=== PATIENT | female | born 1965 | race Caucasian/White ===

== ENCOUNTER 2022-01-14 16:12 | Inpatient (IN) | payer MEDICARE, OTHER ==
[~2022-01-14] VITALS: Ht 157.5 cm; Wt 49.9 kg
[2022-01-14] MEDS ORDERED: RISP4TAB70 PO (16:29)
[2022-01-14] MEDS ORDERED: VENL75CA62 PO (16:29)
[2022-01-14] MEDS ORDERED: ALLO100T56 PO (16:29)
[2022-01-14] MEDS ORDERED: CLON1TAB12 PO (16:29)
[2022-01-14] MEDS ORDERED: BUSP15TA3 PO (16:29)
[2022-01-14] MEDS ORDERED: LOSA50TA39 PO (16:29)
[2022-01-14] MEDS ORDERED: TOLT4CAP PO (16:29)
[2022-01-14] MEDS ORDERED: CHOLECALCIFEROL (16:29)
[2022-01-14] MEDS ORDERED: BENZ1TAB7 PO (16:29)
[2022-01-14] MEDS ORDERED: TRAZ-257 PO (16:29)
[2022-01-14] MEDS ORDERED: OMEP20TA5 PO (16:29)
[2022-01-14 16:43] LABS: HEMATOCRIT 37.8 % (31.2-41.9); MEAN CORPUSCULAR HEMOGLOBIN 29.1 uug (24.7-32.8); MEAN CORPUSCULAR VOLUME 87.7 fL (75.5-95.3); PLATELET COUNT (AUTO) 380 K/uL (179-408)
[2022-01-14] MEDS ORDERED: OLANZAPINE 5 MG TABLET PO ONE (16:45)
[2022-01-14 16:50] LABS: CREATININE 0.7 mg/dL (0.6-1.3)
[2022-01-14 16:56] LABS: ACETAMINOPHEN 5.2 ug/mL (10-30); BILIRUBIN,TOTAL 0.6 mg/dL (0.2-1.0); TOTAL PROTEIN, SERUM 6.9 g/dL (6.4-8.2)
[2022-01-14] MEDS ORDERED: OLANZAPINE 5 MG TABLET ONE (16:56)
--- NOTE | 2022-01-14 17:55 | NUR ---
Pt c/o 06/08 left knee pain and 08/08 WILLMD informed
[2022-01-14] MEDS ORDERED: IBUPROFEN 600 MG TABLET PO ONE (18:00)
[2022-01-14] MEDS ORDERED: IBUPROFEN 600 MG TABLET ONE (18:41)
--- NOTE | 2022-01-14 18:44 | NUR ---
Gave pt dinner tray and juice.
[2022-01-14 19:15] LABS: *BILIRUBIN,URIN NEGATIVE (NEGATIVE); *COLOR,URINE YELLOW (YELLOW); *KETONES,URINE NEGATIVE (NEGATIVE); *UROBILINOGEN,URINE 0.2 E.U./dl (NORMAL); LEUKOCYTE ESTERASE ,URINE 3+ (NEGATIVE); NITRITE, URINE NEGATIVE (NEGATIVE); UGLUCOSE NEGATIVE (NEGATIVE)
[2022-01-14 19:18] LABS: *BLOOD, URINE TRACE (NEGATIVE); *CLARITY,URINE HAZY (CLEAR)
[2022-01-14 19:23] LABS: BACTERIA,URINE MODERATE /HPF (NONE SEEN); SQUAMOUS EPITHELIAL CELL,UR FEW /HPF (NONE SEEN); WBC,URINE 80-100 /HPF (0-3)
[2022-01-14] MEDS ORDERED: ZIPRASIDONE MESYLATE 20 MG VIAL IM ONE ×2 (21:00→21:18)
--- NOTE | 2022-01-14 21:37 | NUR ---
GAVE REPORT TO KEM HARTLEY.
--- NOTE | 2022-01-14 22:09 | NUR ---
Pt. admitted to [facility], under care of VICKIE Tidwell Dx: psychosis 5150 hold DTO, DTS Belongs List completed Pt transfered in stable condition, calm and cooperative, denies any pain and discomfort upon admission.
[2022-01-14 22:15] VITALS: BP 131/82
[2022-01-14] MEDS ORDERED: MAG HYDROX/AL HYDROX/SIMETH 30 ML LIQUID UDC PO PRN (22:15)
[2022-01-14] MEDS ORDERED: BLOOD SUGAR DIAGNOSTIC 1 EACH STRIP VI ONE (22:15)
[2022-01-14] MEDS ORDERED: LORAZEPAM 0.5 MG TABLET PO PRN (22:15)
[2022-01-14] MEDS ORDERED: MAGNESIUM HYDROXIDE 30 ML LIQUID UDC PO PRN (22:15)
[2022-01-14] MEDS ORDERED: ZOLPIDEM 5 MG TABLET PO PRN (22:15)
--- NOTE | 2022-01-14 22:30 | NUR ---
GPS ADMISSION NOTES: PATIENT ADMITTED TO [facility] VIA WHEELCHAIR WITH ER NURSE. PATIENT A&0X3. PATIENT ADMITTED WITH DIAGNOSIS OF PSYCHOSIS D/T DANGER TO SELF AND OTHERS. PATIENT ON 5150. INITIAL FACE TO FACE EVALUATION DONE. PATIENT STATES WHEN ASKED IF ANY THOUGHTS OF HURTING SELF W/C SHE RESPONDS "YES, I FEEL I WANT TO JUMP OF THE BUILDING", AND WHEN ASKED IF HAVING ANY THOUGHTS OF HURTING OTHERS, SHE RESPONDS "AHA, I DON'T KNOW, MY BRAIN IS FOGGY RIGHT NOW" PATIENT C/O OF HEADACHE AND KNEE PAIN AND REQUESTS FOR PAIN MEDICATION. HEAD TO TOE ASSESSMENT DONE. PATIENT NOTED WEARING LEFT KNEE BRACE, BILATERAL HEALED KNEE STITCHES ALSO NOTED. PATIENT APPEARS CALM UPON ADMISSION. COOPERATIVE AND RESPONDS TO QUESTION APPROPRIATELY. SAFETY MEASURES KEPT IN PLACE. PATIENT RIGHTS HANDBOOK AND ADVISEMENT GIVEN TO PATIENT.
[2022-01-14] MEDS: ACETAMINOPHEN 325 MG TABLET PO PRN (23:17)
[2022-01-15] MEDS: ACETAMINOPHEN 325 MG TABLET PO PRN ×2 (04:52→11:47)
[2022-01-15] MEDS ORDERED: PANTOPRAZOLE SODIUM 40 MG TABLET.DR PO SCH (07:00)
[2022-01-15 08:12] VITALS: BP 153/43
[2022-01-15] MEDS: CEphaleXIN 500 MG CAPSULE PO SCH ×2 (08:35→16:43)
[2022-01-15] MEDS: TOLTERODINE LA 2 MG CAP.SR.24H PO SCH (08:35)
[2022-01-15] MEDS: ALLOPURINOL 100 MG TABLET PO SCH (08:36)
[2022-01-15] MEDS: LOSARTAN POTASSIUM 50 MG TABLET PO SCH (08:37)
[2022-01-15] MEDS ORDERED: AZITHROMYCIN 250 MG TABLET PO ONE (09:00)
[2022-01-15] MEDS ORDERED: Medication Not On Formulary EA (Omeprazole 20 MG) PO SCH (09:00)
[2022-01-15] MEDS ORDERED: AZITHROMYCIN 250 MG TABLET PO SCH (09:00)
[2022-01-15] MEDS ORDERED: ESCITALOPRAM OXALATE 10 MG TABLET PO SCH (10:00)
[2022-01-15] MEDS ORDERED: BENZ1TAB7 PO (10:50)
[2022-01-15] MEDS: risperiDONE 1 MG TABLET PO SCH ×2 (11:41→20:24)
[2022-01-15] MEDS: busPIRone 10 MG TABLET PO SCH ×2 (13:13→16:43)
--- NOTE | 2022-01-15 14:30 | NUR ---
GPS: Nursing Notes: Destructive Behavior To Others: Patient is awake and responding to her name, poor impulse control, gets easily anxious when redirected, impaired judgment, responding to internal stimuli, stated, "Sometimes, I am hearing voices telling me to hurts others and hurt myself..", verbally jae for safety, denies SI, "the voices are telling me bad things.. You know...", refusing to participate in therapeutic groups, compliant with her medications, isolative and withdrawn in her room at times, continue to monitor for safety, unable to formulate a viable plan for self care, continue with treatment plan.
[2022-01-15 16:13] VITALS: BP 147/87
[2022-01-15] MEDS: BENZTROPINE MESYLATE 0.5 MG TABLET PO SCH (16:43)
[2022-01-15 20:00] VITALS: BP 136/71
[2022-01-15] MEDS: TRAZODONE 100 MG TABLET PO SCH (20:25)
[2022-01-15] MEDS: CLONAZEPAM 0.5 MG TABLET PO PRN (22:34)
--- NOTE | 2022-01-16 03:48 | NUR ---
Received patient at the start of the shift asking for her "medication." This teletypewriter operator had a conversation with the patient, in which a contract for safety was made. Further safety stratiges have been in place during the night. Patient denied active SI at that time and her affect was artificially bright. VS are stable and no acute distress noted. Continuing with plan of care.
[2022-01-16] MEDS: PANTOPRAZOLE SODIUM 40 MG TABLET.DR PO SCH (06:06)
[2022-01-16] MEDS: busPIRone 10 MG TABLET PO SCH ×3 (06:55→16:31)
[2022-01-16 08:07] VITALS: BP 124/79
[2022-01-16] MEDS: TOLTERODINE LA 2 MG CAP.SR.24H PO SCH (08:27)
[2022-01-16] MEDS: AZITHROMYCIN 250 MG TABLET PO SCH (08:27)
[2022-01-16] MEDS: risperiDONE 1 MG TABLET PO SCH ×2 (08:27→20:36)
[2022-01-16] MEDS: ALLOPURINOL 100 MG TABLET PO SCH (08:28)
[2022-01-16] MEDS: BENZTROPINE MESYLATE 0.5 MG TABLET PO SCH ×2 (08:28→16:31)
[2022-01-16] MEDS: ESCITALOPRAM OXALATE 10 MG TABLET PO SCH (08:28)
[2022-01-16] MEDS: ACETAMINOPHEN 325 MG TABLET PO PRN ×2 (08:28→16:31)
[2022-01-16] MEDS: CEphaleXIN 500 MG CAPSULE PO SCH ×2 (08:28→16:31)
[2022-01-16] MEDS: LOSARTAN POTASSIUM 50 MG TABLET PO SCH (08:29)
--- NOTE | 2022-01-16 12:33 | NUR ---
GPS: Nursing Notes: Destructive Behavior To Others: Patient is awake and responding to her name, gets easily anxious when redirected, stated "I am still hearing voices that tell me to do bad things..", "The voices...They come and goes..", verbally jae for safety, denies SI, stated "the voices are telling me to hurt myself.. But I do not want to hurt myself..", unkempt appearance, depressed mood and anxious affect, continue to monitor for safety, stated "Sometimes, the voices are telling me to hurt other people..", poor impulse control at times, continue with treatment plan.
[2022-01-16 16:15] VITALS: BP 131/80
[2022-01-16 19:36] VITALS: BP 139/81
[2022-01-16] MEDS: TRAZODONE 100 MG TABLET PO SCH (20:36)
[2022-01-17] MEDS: ACETAMINOPHEN 325 MG TABLET PO PRN ×2 (06:32→13:33)
[2022-01-17] MEDS: PANTOPRAZOLE SODIUM 40 MG TABLET.DR PO SCH (06:32)
[2022-01-17 08:00] VITALS: BP 113/55
[2022-01-17] MEDS: ESCITALOPRAM OXALATE 10 MG TABLET PO SCH (08:23)
[2022-01-17] MEDS: risperiDONE 1 MG TABLET PO SCH ×2 (08:23→20:35)
[2022-01-17] MEDS: BENZTROPINE MESYLATE 0.5 MG TABLET PO SCH ×2 (08:23→16:41)
[2022-01-17] MEDS: CEphaleXIN 500 MG CAPSULE PO SCH ×2 (08:23→16:40)
[2022-01-17] MEDS: TOLTERODINE LA 2 MG CAP.SR.24H PO SCH (08:23)
[2022-01-17] MEDS: busPIRone 10 MG TABLET PO SCH ×3 (08:24→16:40)
[2022-01-17] MEDS: AZITHROMYCIN 250 MG TABLET PO SCH (08:25)
[2022-01-17] MEDS: ALLOPURINOL 100 MG TABLET PO SCH (08:25)
[2022-01-17] MEDS: LOSARTAN POTASSIUM 50 MG TABLET PO SCH (08:27)
--- NOTE | 2022-01-17 14:45 | NUR ---
ALE Initial Discharge Note: Pt currently resides at [facility] located at [address] [place] [address] . ALE contacted the [facility] and spoke to Shazia the automotive manager who stated that the pt is welcome back upon discharge. ALE contacted pt's brother, Roberto ([phone]) and was not able to leave a voicemail due to a busy line. ALE will continue to work with pt, family and MD to ensure a safe and proper discharge plan.
--- NOTE | 2022-01-17 14:48 | NUR ---
Firearms Report: Chief Diversity Officer completed and submitted a [employer] firearms report for 5150 a danger to herself and a danger to others. A copy of report has been placed in patient chart.
--- NOTE | 2022-01-17 14:48 | NUR ---
ALE Admit Source: Pt currently resides at [facility] located at [address] [place] [address] . ALE contacted the [facility] and spoke to Shazia the transformation manager who stated that the pt is welcome back upon discharge. ALE contacted pt's brother, Roberto ([phone]) and was not able to leave a voicemail due to a busy line. ALE will continue to work with pt, family and MD to ensure a safe and proper discharge plan.
--- NOTE | 2022-01-17 16:05 | NUR ---
Received patient sleeping in her room. A/O X 2 -3 to person, place. Pt. is demanding, needy, fixated on snacks, cooperative with care, engaged to verbal approach, anxious at times. Compliant with medications. Tylenol 650 mg was given at 13:33 for left shoulder pain rated 5 on the scale of 1 to 10. Pt. had XR left shoulder procedure this morning which results showed a mild degenerative changes of the acromioclavicular joint. VSWNL. Denies SI/HI AH/VH. Requires minimal assistance with ADL. Continent of bladder and bowel. Pt. is encourage to vent feelings and emotions. Fall and safety precautions implemented.
[2022-01-17 16:50] VITALS: BP 117/70
[2022-01-17 19:59] VITALS: BP 122/76
[2022-01-17] MEDS: TRAZODONE 100 MG TABLET PO SCH (20:35)
[2022-01-18] MEDS: CLONAZEPAM 0.5 MG TABLET PO PRN (00:15)
[2022-01-18] MEDS: PANTOPRAZOLE SODIUM 40 MG TABLET.DR PO SCH (06:20)
--- NOTE | 2022-01-18 07:01 | NUR ---
Patient alert oriented, ambulate with fww, patient cooperative with care, calm, stayed in bed most of the night, with episode of anxiety last night, request klonopin with effective results, cont to monitor.
[2022-01-18 07:30] VITALS: BP 126/74
[2022-01-18] MEDS: TOLTERODINE LA 2 MG CAP.SR.24H PO SCH (08:35)
[2022-01-18] MEDS: risperiDONE 1 MG TABLET PO SCH ×2 (08:35→20:08)
[2022-01-18] MEDS: ALLOPURINOL 100 MG TABLET PO SCH (08:36)
[2022-01-18] MEDS: CEphaleXIN 500 MG CAPSULE PO SCH ×2 (08:36→17:08)
[2022-01-18] MEDS: AZITHROMYCIN 250 MG TABLET PO SCH (08:36)
[2022-01-18] MEDS: BENZTROPINE MESYLATE 0.5 MG TABLET PO SCH ×2 (08:36→17:08)
[2022-01-18] MEDS: LOSARTAN POTASSIUM 50 MG TABLET PO SCH (08:36)
[2022-01-18] MEDS: ESCITALOPRAM OXALATE 10 MG TABLET PO SCH (08:36)
[2022-01-18] MEDS: busPIRone 10 MG TABLET PO SCH ×3 (08:36→17:08)
[2022-01-18] MEDS: ACETAMINOPHEN 325 MG TABLET PO PRN (14:11)
[2022-01-18 15:17] VITALS: BP 121/78
[2022-01-18] MEDS ORDERED: METHYL SALICYLATE/MENTHOL CREAM 28 GM TUBE TOP PRN (15:30)
--- NOTE | 2022-01-18 17:48 | NUR ---
GPS: Nursing Notes: Destructive Behavior To Others: Patient is awake and responding to her name, gets easily anxious when redirected, needs prompting to participate in therapeutic groups, compliant with her medications, isolative and withdrawn in her room at times, needy at times, denies SI/HI, cooperative with nursing care, denies AH/VH at this time, stated that the medications are helping her, continue to monitor for safety, continue with treatment plan.
[2022-01-18 19:53] VITALS: BP 129/76
[2022-01-18] MEDS: TRAZODONE 100 MG TABLET PO SCH (20:08)
[2022-01-19] MEDS: CLONAZEPAM 0.5 MG TABLET PO PRN (00:35)
[2022-01-19] MEDS: ACETAMINOPHEN 325 MG TABLET PO PRN ×2 (00:38→16:53)
--- NOTE | 2022-01-19 06:02 | NUR ---
GPS NOTES: patient displays attention seeking behavior throughout the shift. Patient constantly coming in at the station, demands to have snacks X6, demands for waterx6, demands for clean gown, towel and socks. Patient asked for Klonopin for anxiety and Tylenol 650mg d/t pain. Needs to be attended promptly as patient tends to be restless and anxious if needs are not met.Set limits with patient. patient agreeable, however continue on to demand for attention. patient also states she is "shaky", so robmicaela provided to patient to keep her warm. Needs attended to. Safety strategies kept in place. No suicidal ideation during shift as per patient.
[2022-01-19] MEDS: PANTOPRAZOLE SODIUM 40 MG TABLET.DR PO SCH (06:21)
[2022-01-19 07:39] VITALS: BP 152/71
[2022-01-19] MEDS: TOLTERODINE LA 2 MG CAP.SR.24H PO SCH (08:12)
[2022-01-19] MEDS: ESCITALOPRAM OXALATE 10 MG TABLET PO SCH (08:13)
[2022-01-19] MEDS: risperiDONE 1 MG TABLET PO SCH ×2 (08:13→20:31)
[2022-01-19] MEDS: AZITHROMYCIN 250 MG TABLET PO SCH (08:14)
[2022-01-19] MEDS: busPIRone 10 MG TABLET PO SCH ×3 (08:14→16:53)
[2022-01-19] MEDS: ALLOPURINOL 100 MG TABLET PO SCH (08:14)
[2022-01-19] MEDS: BENZTROPINE MESYLATE 0.5 MG TABLET PO SCH ×2 (08:15→16:54)
[2022-01-19] MEDS: CEphaleXIN 500 MG CAPSULE PO SCH ×2 (08:15→16:54)
[2022-01-19] MEDS: LOSARTAN POTASSIUM 50 MG TABLET PO SCH (08:16)
--- NOTE | 2022-01-19 11:00 | NUR ---
ALE Discharge Update: ALE contacted [facility] located at [address] [place] [address] ([phone]) and left a voicemail for a call back regarding transportation for pt's discharge on 01/20/22. ALE left a voicemail for Shazia the change manager who stated that the pt is welcome back upon discharge. ALE contacted pt's brother, Roberto ([phone]) again and was not able to leave a voicemail due to a busy line again.
[2022-01-19 16:53] VITALS: BP 121/67
--- NOTE | 2022-01-19 17:33 | NUR ---
received patient awake in her room. A/O X 3 to person, place, environment. Pt. is demanding, needy, cooperative with care and compliant with medications, calm, talkative. Pt. appearance is age appropriate. Tylenol 650 mg given at 16:57 for headache, effective. Self care. Pt. is encourage to verbalize concerns. Fall and safety precautions implemented.
[2022-01-19 19:48] VITALS: BP 136/66
[2022-01-19] MEDS: TRAZODONE 100 MG TABLET PO SCH (20:31)
[2022-01-20] MEDS: CLONAZEPAM 0.5 MG TABLET PO PRN (02:13)
[2022-01-20] MEDS: ACETAMINOPHEN 325 MG TABLET PO PRN (02:13)
[2022-01-20] MEDS: PANTOPRAZOLE SODIUM 40 MG TABLET.DR PO SCH (06:17)
[2022-01-20 07:34] VITALS: BP 138/88
[2022-01-20] MEDS: ALLOPURINOL 100 MG TABLET PO SCH (08:41)
[2022-01-20] MEDS: risperiDONE 1 MG TABLET PO SCH (08:41)
[2022-01-20] MEDS: CEphaleXIN 500 MG CAPSULE PO SCH (08:42)
[2022-01-20 08:43] VITALS: BP 138/88
[2022-01-20] MEDS: ESCITALOPRAM OXALATE 10 MG TABLET PO SCH (08:43)
[2022-01-20] MEDS: LOSARTAN POTASSIUM 50 MG TABLET PO SCH (08:43)
[2022-01-20] MEDS: BENZTROPINE MESYLATE 0.5 MG TABLET PO SCH (08:43)
[2022-01-20] MEDS: TOLTERODINE LA 2 MG CAP.SR.24H PO SCH (08:44)
[2022-01-20] MEDS: busPIRone 10 MG TABLET PO SCH (08:44)
--- NOTE | 2022-01-20 08:59 | NUR ---
ALE Discharge Note: Pt will be discharged to [facility] via [facility] transportation by foreman/project manager, Young ([phone]) at 11AM. ALE spoke with Young ([phone]), foreman/project manager of [facility] who states he is ready to accept the patient today. Pt is aware and agreeable with discharge plans. Pt is alert and oriented x4, is unable to plan for self-care at this time; however, is willing to accept care at the [facility]. Pt denies any suicidal or homicidal ideation. Pt will follow-up with her outpatient Psychiatrist and Production Leader post discharge. Pt did not recall further details. Pt presents with calm mood and congruent affect. PHARMACY: [facility] ([phone]) [facility] [place] [address].
--- NOTE | 2022-01-20 10:49 | NUR ---
Gps/Manager Decision Support- Reviewed discharge instructions, safety, diet, skin care, prescriptions/medications , follow up with her Primary Medical Doctor and pout patient Psychiatrist, Patient verbalized understanding. All belongings given back to patient. Appeared to be in good spirit, denies S.I. no Homocidal ideation. All belongs and valuables given back to patient. denies any discomfort. Waiting for Young (Knitter Operator of the [facility]) to fruit picker machine operator patient.
--- NOTE | 2022-01-20 12:00 | NUR ---
Gps/Christine Vidal (Ship Loader of [facility]) came in to transport patient back to the [facility]All belonings and valuables returned back to patient . Discharged via private car, no complaints noted.
--- NOTE | 2022-01-20 12:31 | NUR ---
Gps/Alarm Signal Operator- Patient's called, (Petar) was informed of patient's discharged back to [facility]
== END 2022-01-20 12:00 | DRG 885 ==
LOC: ER 16:12 → GPS 21:54
PROVIDERS: ADMIT Psychiatry & Neurology Psychiatry; ATTEND Registered Nurse
DX: F25.1 Schizoaffective disorder, depressive type (principal); B95.1 Streptococcus, group B, as the cause of diseases classified elsewhere; R45.851 Suicidal ideations; N39.0 Urinary tract infection, site not specified; J06.9 Acute upper respiratory infection, unspecified; Z20.822 Contact with and (suspected) exposure to COVID-19; F94.0 Selective mutism; F43.12 Post-traumatic stress disorder, chronic; Z79.899 Other long term (current) drug therapy; M25.512 Pain in left shoulder; Z91.81 History of falling; Z96.652 Presence of left artificial knee joint; M10.9 Gout, unspecified; K21.9 Gastro-esophageal reflux disease without esophagitis; G40.909 Epilepsy, unspecified, not intractable, without status epilepticus
CPT/HCPCS: 36415; 71045; 73030; 85025; 87077; 87086; 93005; 97161; A4663; J3486; J8499; Q0144

== ENCOUNTER 2025-07-21 12:32 | Inpatient (IN) | payer MEDICARE, OTHER ==
[~2025-07-21] VITALS: Ht 157.5 cm; Wt 55.3 kg
[~2025-07-21 12:32] MED LIST: ALLO100T56 PO; LOSA50TA39 PO; OMEP20TA5 PO; TOLT4CAP PO
[2025-07-21 12:42] VITALS: BP 139/79
[2025-07-21] MEDS ORDERED: OLAN5TAB3 PO (12:55)
[2025-07-21] MEDS ORDERED: LORA-259 PO (12:55)
[2025-07-21] MEDS ORDERED: DIVA250T PO (12:55)
[2025-07-21] MEDS ORDERED: ACET-2154 PO (12:55)
[2025-07-21] MEDS ORDERED: DOCU100T2 PO (12:55)
[2025-07-21] MEDS ORDERED: TEMA15CA PO (12:55)
[2025-07-21] MEDS ORDERED: SERT50TA PO (12:55)
[2025-07-21] MEDS ORDERED: IBUP-2314 PO (12:55)
[2025-07-21 13:16] LABS: *BILIRUBIN,URIN NEGATIVE (NEGATIVE); *CLARITY,URINE CLEAR (CLEAR); *COLOR,URINE YELLOW (YELLOW); *KETONES,URINE NEGATIVE (NEGATIVE); *PROTEIN,URINE NEGATIVE (NEGATIVE); *UROBILINOGEN,URINE 0.2 E.U./dl (NORMAL); LEUKOCYTE ESTERASE ,URINE TRACE (NEGATIVE); NITRITE, URINE NEGATIVE (NEGATIVE); UGLUCOSE NEGATIVE (NEGATIVE)
[2025-07-21 13:21] LABS: PLATELET COUNT (AUTO) 267 K/uL (179-408); RED BLOOD CELL COUNT(AUTO) 4.40 MIL/uL (3.63-4.92); RED CELL DISTRIBUTION WIDTH 14.0 % (12.3-17.7); WHITE BLOOD COUNT (AUTO) 9.3 K/uL (3.8-11.8)
[2025-07-21 13:27] LABS: *AMPHETAMINE, URINE NEGATIVE (NEGATIVE); *BARBITURATE, URINE NEGATIVE (NEGATIVE); *BENZODIAZEPINE, URINE NEGATIVE (NEGATIVE); *CANNABINOID, URINE NEGATIVE (NEGATIVE); *COCCAINE, URINE NEGATIVE (NEGATIVE); *OPIATE, URINE NEGATIVE (NEGATIVE); *PHENCYCLIDINE SCREEN,URINE NEGATIVE (NEGATIVE); FENTANYL, URINE NEGATIVE (NEGATIVE)
[2025-07-21 13:28] LABS: *BLOOD, URINE TRACE (NEGATIVE)
[2025-07-21 13:29] LABS: SQUAMOUS EPITHELIAL CELL,UR FEW /HPF (NONE SEEN)
[2025-07-21 13:31] LABS: CREATININE 0.6 mg/dL (0.6-1.3); SODIUM SERUM 133.0 mmol/L (136-145); UREA NITROGEN, BLOOD 7.0 mg/dL (7-18)
[2025-07-21 13:32] LABS: ETHANOL < 3 MG/DL (0-10)
[2025-07-21 13:36] LABS: ASPARTATE AMINOTRANSFERASE 16.0 U/L (15-37); TOTAL PROTEIN, SERUM 7.1 g/dL (6.4-8.2)
[2025-07-21] MEDS ORDERED: HYDROCODONE/APAP 5-325MG TABLET ONE (14:18)
[2025-07-21] MEDS: HYDROCODONE/APAP 5-325MG TABLET PO ONE (14:19)
[2025-07-21] MEDS ORDERED: MAG HYDROX/AL HYDROX/SIMETH 30 ML LIQUID UDC PO PRN (16:00)
[2025-07-21] MEDS ORDERED: MAGNESIUM HYDROXIDE 30 ML LIQUID UDC PO PRN (16:00)
[2025-07-21 16:44] VITALS: BP 161/89; TEMP 98.5; O2SAT 97
[2025-07-21 20:00] VITALS: BP 140/60; TEMP 97.5; O2SAT 97
[2025-07-22] MEDS: ACETAMINOPHEN 325 MG TABLET PO PRN (03:32)
[2025-07-22 08:12] VITALS: BP 113/87; TEMP 98.5; O2SAT 97
[2025-07-22] MEDS: DOCUSATE SODIUM 100 MG CAPSULE PO SCH (08:45)
[2025-07-22] MEDS: LORAZEPAM 0.5 MG TABLET PO PRN (14:08)
[2025-07-22] MEDS: DIVALPROEX 250 MG TABLET.DR PO SCH (14:08)
[2025-07-22] MEDS: OLANZAPINE 2.5 MG TABLET PO SCH (14:08)
[2025-07-22 16:34] VITALS: BP 118/80; TEMP 98.5; O2SAT 97
[2025-07-22 20:00] VITALS: BP 127/69; TEMP 97.4; O2SAT 99
[2025-07-22] MEDS: OLANZAPINE 5 MG TABLET PO SCH (20:37)
[2025-07-23 07:49] VITALS: BP 162/88; TEMP 97.7; O2SAT 100
[2025-07-23 08:59] LABS: ASPARTATE AMINOTRANSFERASE 16.0 U/L (15-37); CREATININE 0.5 mg/dL (0.6-1.3); SODIUM SERUM 134.0 mmol/L (136-145); TOTAL PROTEIN, SERUM 7.5 g/dL (6.4-8.2); UREA NITROGEN, BLOOD 5.0 mg/dL (7-18)
[2025-07-23 15:57] VITALS: BP 127/67; TEMP 97; O2SAT 100
[2025-07-23] MEDS: ENSURE WITH FIBER 237 ML LIQUID (CHOCOLATE) PO SCH (17:20)
[2025-07-23 20:00] VITALS: BP 101/54; TEMP 98.2; O2SAT 96
[2025-07-24 08:00] VITALS: BP 120/73; TEMP 97.8; O2SAT 98
[2025-07-24 16:00] VITALS: BP 111/62; TEMP 97.8; O2SAT 98
[2025-07-24] MEDS: OLANZAPINE 5 MG TABLET PO SCH ×2 (16:03→20:34)
[2025-07-24] MEDS ORDERED: OLANZAPINE 2.5 MG TABLET PO SCH (17:00)
[2025-07-24 19:00] VITALS: BP 108/57; TEMP 97.7; O2SAT 97
[2025-07-24] MEDS: TEMAZEPAM 7.5 MG CAPSULE PO PRN (22:04)
[2025-07-25 07:55] VITALS: BP_SYST 104; BP_SYST 139; BP_DIAS 59; BP_DIAS 77; TEMP 97.4; TEMP 97.6; O2SAT 97; O2SAT 98
[2025-07-25 16:20] VITALS: BP 120/76; TEMP 97; O2SAT 98
[2025-07-25 19:54] VITALS: BP 107/55; TEMP 98.5; O2SAT 96
[2025-07-26 07:52] VITALS: BP 121/75; TEMP 97.4; O2SAT 97
[2025-07-26 16:17] VITALS: BP_SYST 82; BP_SYST 95; BP_DIAS 50; BP_DIAS 52; TEMP 98.7; O2SAT 100
[2025-07-26 20:00] VITALS: BP 144/75; TEMP 98.2; O2SAT 95
[2025-07-27 08:46] VITALS: BP 137/54; TEMP 97.4; O2SAT 97
[2025-07-27 16:27] VITALS: BP 132/68; TEMP 97.4; O2SAT 97
[2025-07-27 21:55] VITALS: BP 141/68; TEMP 98; O2SAT 96
[2025-07-28 08:13] VITALS: BP 140/78; TEMP 97.8; O2SAT 97
== END 2025-07-28 11:30 | DRG 885 ==
LOC: ER 12:32 → GPS 15:23
PROVIDERS: ADMIT Psychiatry & Neurology Psychosomatic Medicine; ATTEND Internal Medicine
DX: F25.0 Schizoaffective disorder, bipolar type (principal); R45.851 Suicidal ideations; N39.0 Urinary tract infection, site not specified; Z91.51 Personal history of suicidal behavior; K21.9 Gastro-esophageal reflux disease without esophagitis; M10.9 Gout, unspecified; E78.5 Hyperlipidemia, unspecified; Z91.011 Allergy to milk products; Z91.013 Allergy to seafood; F43.10 Post-traumatic stress disorder, unspecified; Z86.69 Personal history of other diseases of the nervous system and sense organs; N32.81 Overactive bladder; F41.9 Anxiety disorder, unspecified; G60.9 Hereditary and idiopathic neuropathy, unspecified; I11.9 Hypertensive heart disease without heart failure; M15.9 Polyosteoarthritis, unspecified; Z79.899 Other long term (current) drug therapy; Z96.652 Presence of left artificial knee joint; J45.909 Unspecified asthma, uncomplicated
CPT/HCPCS: 36415; 80164; 84443; 85025; 87086; G0480; J3490